=== PATIENT | female | born 1985 | race Two or more races ===

== ENCOUNTER 2017-07-13 10:12 | Emergency (ER) | payer OTHER ==
[2017-07-13 10:35] LABS: BILIRUBIN,URINE NEGATIVE (NEG); CLARITY,URINE CLEAR; COLOR,URINE YELLOW; GLUCOSE,URINE NEGATIVE (NEG); NITRITE,URINE POSITIVE (NEG); PROTEIN,URINE NEGATIVE (NEG-TRACE)
[2017-07-13 10:48] LABS: BACTERIA,URINE MOD /HPF (0-FEW); RBC,URINE OCC /HPF (0-2); SQUAMOUS EPITHELIAL CELL,UR MOD /LPF; WBC,URINE >40 /HPF (0-4)
[2017-07-13 10:49] LABS: ADD MAN DIFF? NO
[2017-07-13 10:52] LABS: BASO % 1 % (0-3); EOS # 0.1 x10^3/uL (0.0-0.7); EOS % 2 % (0-3); HEMATOCRIT 36.3 % (36.0-47.0); HEMOGLOBIN 12.3 g/dL (12.0-15.5); LYMPH # 1.3 x10^3/uL (1.0-4.8); LYMPH % 20 % (24-48); MEAN CORPUSCULAR HEMOGLOBIN 29 pg (25-35); MEAN CORPUSCULAR HGB CONC 34 g/dL (31-37); MEAN CORPUSCULAR VOLUME 86 fL (79-100); MONO # 0.5 x10^3/uL (0.0-1.1); MONO % 7 % (0-9); NEUT # 4.6 x10^3uL (1.8-7.7); NEUT % 70 % (31-73); PLATELET COUNT 214 x10^3/uL (140-400); RED BLOOD COUNT 4.23 x10^6/uL (3.50-5.40); RED CELL DISTRIBUTION WIDTH 13.2 % (11.5-14.5); WHITE BLOOD COUNT 6.5 x10^3/uL (4.0-11.0)
[2017-07-13 11:02] LABS: ANION GAP 9 (6-14); BLOOD UREA NITROGEN 6 mg/dL (7-20); BUN/CREATININE RATIO 10 (6-20); CALCIUM 8.9 mg/dL (8.5-10.1); CARBON DIOXIDE 26 mmol/L (21-32); CHLORIDE 102 mmol/L (98-107); CREATININE 0.6 mg/dL (0.6-1.0); GFR 115.9; GLUCOSE 79 mg/dL (70-99); POTASSIUM 3.5 mmol/L (3.5-5.1); SODIUM 137 mmol/L (136-145)
[2017-07-13 11:11] LABS: ALBUMIN 3.2 g/dL (3.4-5.0); ALBUMIN/GLOBULIN RATIO 0.7 (1.0-1.7); ALK PHOS 49 U/L (46-116); ALT (SGPT) 37 U/L (14-59); AST (SGOT) 20 U/L (15-37); TOTAL BILIRUBIN 0.5 mg/dL (0.2-1.0); TOTAL PROTEIN 7.5 g/dL (6.4-8.2)
== END 2017-07-13 11:51 | disposition home or self-care (01) ==
LOC: ER 10:12
DX: O44.02 Complete placenta previa NOS or without hemorrhage, second trimester (principal); O23.42 Unspecified infection of urinary tract in pregnancy, second trimester; Z3A.15 15 weeks gestation of pregnancy
CPT/HCPCS: 36415; 76801; 80053; 81001; 84702; 85025; 86900; 86901; 99285-25

== ENCOUNTER 2021-07-31 10:17 | Emergency (ER) | payer BC, OTHER ==
[~2021-07-31] VITALS: Ht 165.1 cm; Wt 102.2 kg
[~2021-07-31 10:17] MED LIST: NITR100C62 PO
[2021-07-31] MEDS ORDERED: IV NORMAL SALINE 1000ML BAG 1,000 ML IV SCH (10:45)
[2021-07-31] MEDS ORDERED: FAMOTIDINE 20 MG/2 ML VIAL IVP ONE (10:45)
[2021-07-31] MEDS ORDERED: ASPIRIN 325 MG TABLET PO ONE (10:45)
[2021-07-31 10:49] LABS: BASO % 1 % (0-3); EOS # 0.2 x10^3/uL (0.0-0.7); EOS % 4 % (0-3); HEMATOCRIT 39.2 % (36.0-47.0); HEMOGLOBIN 12.8 g/dL (12.0-15.5); LYMPH # 1.4 x10^3/uL (1.0-4.8); LYMPH % 31 % (24-48); MEAN CORPUSCULAR HEMOGLOBIN 27 pg (25-35); MEAN CORPUSCULAR HGB CONC 33 g/dL (31-37); MEAN CORPUSCULAR VOLUME 84 fL (79-100); MONO # 0.4 x10^3/uL (0.0-1.1); MONO % 8 % (0-9); NEUT # 2.7 x10^3/uL (1.8-7.7); NEUT % 57 % (31-73); PLATELET COUNT 265 x10^3/uL (140-400); RED BLOOD COUNT 4.69 x10^6/uL (3.50-5.40); RED CELL DISTRIBUTION WIDTH 13.7 % (11.5-14.5); WHITE BLOOD COUNT 4.7 x10^3/uL (4.0-11.0)
[2021-07-31 11:05] LABS: CALCIUM 9.3 mg/dL (8.5-10.1); CREATININE 0.6 mg/dL (0.6-1.0); GFR 113.1
--- NOTE | 2021-07-31 11:08 | PHYS DOC ---
Past Medical History Past Medical History: No Pertinent History Past Surgical History: , Other Additional Past Surgical Histo: X2 Smoking Status: Never Smoker Alcohol Use: None Drug Use: None General Adult EDM: Chief Complaint: CHEST PAIN HPI: HPI: Patient is a 36 year old female who presents with last night started having mid chest pressure that does hurt continuously but more so with movement. Mother has heart problems but she does not know what they are. She takes no medications daily. Do not take any aspirin. Rates her pain a pressure nonradiating 7 out of 10 that is mid chest. Denies abdominal pain, nausea, vomiting, diarrhea, fever, cough, recent illness, syncope, dizziness, headache denies shortness of breath denies pain with breathing. Review of Systems: Review of Systems: Constitutional: Denies fever or chills. [] Eyes: Denies change in visual acuity. [] HENT: Denies nasal congestion or sore throat. [] Respiratory: Denies cough or shortness of breath. [] Cardiovascular: + chest pain or denies edema. [] GI: Denies abdominal pain, nausea, vomiting, bloody stools or diarrhea. [] : Denies dysuria. [] Musculoskeletal: Denies back pain or joint pain. [] Integument: Denies rash. [] Neurologic: Denies headache, focal weakness or sensory changes. [] Endocrine: Denies polyuria or polydipsia. [] Lymphatic: Denies swollen glands. [] Psychiatric: Denies depression or anxiety. [] Heart Score: C/O Chest Pain: Yes HEART Score for Chest Pain: HEART Score for Chest Pain Response (Comments) Value History Slighlty/Non-Suspicious 0 ECG Normal 0 Age < 45 0 Risk Factors 1 or 2 Risk Factors 1 Troponin < Normal Limit 0 Total 1 Risk Factors: Risk Factors: DM, Current or recent (<one month) smoker, HTN, HLP, family history of CAD, obesity. Risk Scores: Score 0 - 3: 2.5% MACE over next 6 weeks - Discharge Home Score 4 - 6: 20.3% MACE over next 6 weeks - Admit for Clinical Observation Score 7 - 10: 72.7% MACE over next 6 weeks - Early Invasive Strategies Current Medications: Current Medications Medications (Trade) Dose Ordered Sig/Carlos Alberto Start Time Stop Time Status Last Admin Dose Admin Aspirin (Carolyn Aspirin) 325 mg 1X ONCE 07/31/21 10:45 07/31/21 10:49 DC Famotidine (Pepcid Vial) 20 mg 1X ONCE 07/31/21 10:45 07/31/21 10:49 DC Sodium Chloride 1,000 ml @ 1,000 mls/hr Q1H 07/31/21 10:45 07/31/21 11:44 Allergies: Allergies: Allergies Coded Allergies Type Severity Reaction Last Updated Verified No Known Drug Allergies 07/13/17 No Physical Exam: PE: Constitutional: Well developed, well nourished, no acute distress, non-toxic appearance. [] HENT: Normocephalic, atraumatic, bilateral external ears normal, oropharynx moist, no oral exudates, nose normal. [] Eyes: PERRLA, EOMI, conjunctiva normal, no discharge. [] Neck: Normal range of motion, no tenderness, supple, no stridor. [] Cardiovascular:Heart rate regular rhythm, no murmur. Reproducible mid chest pain with pressure [] Lungs & Thorax: Bilateral breath sounds clear to auscultation [] Abdomen: Bowel sounds normal, soft, no tenderness, no masses, no pulsatile masses. [] Skin: Warm, dry, no erythema, no rash. [] Back: No tenderness, no CVA tenderness. [] Extremities: No tenderness, no cyanosis, no clubbing, ROM intact, no edema. [] Neurologic: Alert and oriented X 3, normal motor function, normal sensory function, no focal deficits noted. [] Psychologic: Affect normal, judgement normal, mood normal. [] Current Patient Data: Labs: Laboratory Tests Test 07/31/21 10:44 White Blood Count 4.7 x10^3/uL (4.0-11.0) Red Blood Count 4.69 x10^6/uL (3.50-5.40) Hemoglobin 12.8 g/dL (12.0-15.5) Hematocrit 39.2 % (36.0-47.0) Mean Corpuscular Volume 84 fL (79-100) Mean Corpuscular Hemoglobin 27 pg (25-35) Mean Corpuscular Hemoglobin Concent 33 g/dL (31-37) Red Cell Distribution Width 13.7 % (11.5-14.5) Platelet Count 265 x10^3/uL (140-400) Neutrophils (%) (Auto) 57 % (31-73) Lymphocytes (%) (Auto) 31 % (24-48) Monocytes (%) (Auto) 8 % (0-9) Eosinophils (%) (Auto) 4 % (0-3) H Basophils (%) (Auto) 1 % (0-3) Neutrophils # (Auto) 2.7 x10^3/uL (1.8-7.7) Lymphocytes # (Auto) 1.4 x10^3/uL (1.0-4.8) Monocytes # (Auto) 0.4 x10^3/uL (0.0-1.1) Eosinophils # (Auto) 0.2 x10^3/uL (0.0-0.7) Basophils # (Auto) 0.0 x10^3/uL (0.0-0.2) Laboratory Tests 07/31/21 10:44 Vital Signs: Vital Signs Date Time Temp Pulse Resp B/P (MAP) Pulse Ox O2 Delivery O2 Flow Rate FiO2 07/31/21 10:21 98.6 88 17 159/100 (119) 100 Room Air 98.6 EKG: EK and read by Dr. Joseph as a sinus rhythm and no STEMI. Radiology/Procedures: Radiology/Procedures: [] Impression: [facility] [address] [place], [place] [id number] IMAGING REPORT Signed PATIENT: LAILA ROWLAND ACCOUNT: [id number] : 1985 LOCATION: ER AGE: 36 SEX: F EXAM STATUS: PRE ER ORD. PHYSICIAN: TANYA RAMON APRN REASON: chest pain, some trouble breathing PROCEDURE: PORTABLE CHEST 1V Single AP view of the chest. Comparison: None. Indication: Chest pain and difficulty breathing Findings: The heart is at the upper limits of normal. There is no pneumothorax or effusion. No air space or interstitial disease. Impression: 1. No acute cardiopulmonary process. Electronically signed by: Guero Mak MD (07/31/2021 11:06 AM) [id number] DICTATED and SIGNED BY: GUERO MAK MD DATE: 07/31/21 1106 Course & Med Decision Making: Course & Med Decision Making Pertinent Labs and Imaging studies reviewed. (See chart for details) See HPI. Alert and oriented x4. Scarbro warm and dry. No extremity edema. Obesity. Speaks in full clear sentences. Skin pink warm and dry. Abdomen soft and nontender. Chest pain is reproducible with palpation to the mid chest. She denies it radiating. Vital signs are within normal limits. No calf tenderness or extremity edema. No recent surgery or travel. PERC 0. Wells 0. Blood work unremarkable. Chest x-ray shows no acute findings. Patient states she feels the same but no worse. She denies any shortness of breath. Seeing as how this is reproducible pain with palpation and with movement this is most likely musculoskeletal. Her troponin is negative. Her EKG is normal sinus rhythm. [] Dragon Disclaimer: Dragon Disclaimer: This electronic medical record was generated, in whole or in part, using a voice recognition dictation system. Departure Departure Impression: Primary Impression: Musculoskeletal chest pain Disposition: HOME / SELF CARE / HOMELESS Condition: STABLE Referrals: DERICK BLACKMAN MD (PCP) KEVIN HUITRON MD Patient Instructions: Chest Pain (Nonspecific) Additional Instructions: Follow-up with a primary care provider soon as possible. If any of your symptoms worsen or become severe return to the emergency room. Take medication as prescribed and with food. Remember some of these medications can make you sleepy do not drive or work on the medication. Scripts Cyclobenzaprine Hcl (CYCLOBENZAPRINE HCL) 5 Mg Tablet 1 TAB PO TID PRN for MUSCLE PAIN, #15 TAB Prov: TANYA RAMON APRN 07/31/21 Methylprednisolone (MEDROL) 4 Mg Tab.ds.pk 1 PKG PO UD, #1 PKG Prov: TANYA RAMON TEST DESKMAN 07/31/21 TANYA RAMON APRN Jul 31, 2021 11:08
[2021-07-31 11:10] LABS: ALBUMIN 4.1 g/dL (3.4-5.0); ALBUMIN/GLOBULIN RATIO 1.2 (1.0-1.7); TOTAL BILIRUBIN 0.7 mg/dL (0.2-1.0); TOTAL PROTEIN 7.6 g/dL (6.4-8.2)
[2021-07-31 12:00] LABS: BACTERIA,URINE FEW /HPF (0-FEW); RBC,URINE 0 /HPF (0-2)
[2021-07-31 12:06] LABS: BARBITURATES NEG (NEG); BENZODIAZEPINES NEG (NEG); CANNABINOIDS NEG (NEG); COCAINE NEG (NEG); METHADONE NEG (NEG); OPIATES NEG (NEG); PHENCYCLIDINE NEG (NEG)
[2021-07-31 12:09] LABS: AMPHETAMINE/METHAMPHETAMINE NEG (NEG)
[2021-07-31 12:49] VITALS: BP 144/90
[2021-07-31] MEDS ORDERED: CYCL5TAB PO (12:55)
[2021-07-31] MEDS ORDERED: METH4TAB2 PO (12:55)
--- NOTE | 2021-07-31 13:29 | EKG ---
[facility] [address] [place] [address] Test Date: 1999-05-02 Test Time: 08:01:04 Pat Name: LAILA ROWLAND Department: Room: Gender: F [employer]: : 1985 Requested By: TANYA RAMON Order Number: [id number] Reading MD: Fahad Quesada Measurements Intervals [place] Rate: 80 P: 19 ND: 168 QRS: 28 QRSD: 78 T: 13 QT: 378 QTc: 440 Interpretive Statements SINUS RHYTHM RI6.02 No previous ECG available for comparison Electronically Signed On 07-31-2021 16:25:23 CDT by Fahad Quesada
== END 2021-07-31 13:24 | disposition home or self-care (01) ==
LOC: ER 10:17
DX: R07.89 Other chest pain (principal)
CPT/HCPCS: 36415; 71045; 80053; 80307; 81001; 81025; 83690; 83735; 83880; 84484; 85025; 93005; 96361; 96374; 99285; J3490; J7030

== ENCOUNTER 2021-09-09 21:28 | Inpatient (IN) | payer BC ==
[~2021-09-09] VITALS: Ht 165.1 cm; Wt 103.3 kg
[~2021-09-09 21:28] MED LIST changes: +CYCL5TAB PO; +METH4TAB2 PO
--- NOTE | 2021-09-09 21:56 | PHYS DOC ---
Past Medical History Past Medical History: No Pertinent History Past Surgical History: , Other Additional Past Surgical Histo: X2 Smoking Status: Never Smoker Alcohol Use: None Drug Use: None Adult General Chief Complaint Chief Complaint: CHEST PAIN HPI HPI Patient is a 36 year old female presenting to the emergency department for evaluation of chest pain headache and vertigo. Patient says that her chest pain started approximately 2 PM this afternoon while she was at rest. She says it is a pressure sensation in the center of her chest is associate with nausea and shortness of breath. She has no vomiting or diaphoresis with her symptoms and the symptoms have been constant since then. She says that the headache and room spinning sensation started at approximately 3 PM. She says the room spinning sensation is more prominent when she moves her head or tries to walk and does not have room spinning when she is sitting still. She says the headache is di ffuse and pounding. She says that she has no medical problems and takes no medications on a regular basis. She denies smoking cigarettes or having a family history of heart disease. She denies any prior cardiac testing such as EKG stress test or heart catheterization. She is in no acute distress with normal vital signs. Review of Systems Review of Systems Constitutional: Denies fever or chills [] Eyes: Denies change in visual acuity, redness, or eye pain [] HENT: Denies nasal congestion or sore throat [] Respiratory: Denies cough or shortness of breath [] Cardiovascular: +CP GI: Denies abdominal pain. No nausea, vomiting, bloody stools or diarrhea [] : Denies dysuria or hematuria [] Musculoskeletal: Denies back pain or joint pain [] Integument: Denies rash or skin lesions [] Neurologic: + headache. No focal weakness or sensory changes [] All other systems were reviewed and found to be within normal limits, except as documented in this note. Current Medications Current Medications Current Medications Medications (Trade) Dose Ordered Sig/[facility] Start Time Stop Time Status Last Admin Dose Admin Aspirin (Aspirin Chewable) 324 mg 1X ONCE 09/09/21 22:00 09/09/21 22:01 DC 09/09/21 22:41 324 MG Diazepam (Valium) 5 mg 1X ONCE 09/09/21 22:00 09/09/21 22:01 DC 09/09/21 22:42 5 MG Meclizine HCl (Antivert) 25 mg 1X ONCE 09/09/21 22:00 09/09/21 22:01 DC 09/09/21 22:40 25 MG Morphine Sulfate (Morphine Sulfate) 4 mg 1X PRN 09/09/21 22:00 09/09/21 22:41 4 MG Ondansetron HCl (Zofran) 4 mg 1X ONCE 09/09/21 22:00 09/09/21 22:01 DC 09/09/21 22:41 4 MG Sodium Chloride 1,000 ml @ 1,000 mls/hr 1X ONCE 09/09/21 22:00 09/09/21 22:59 DC 09/09/21 22:40 1,000 MLS/HR Allergies Allergies Allergies Coded Allergies Type Severity Reaction Last Updated Verified No Known Drug Allergies 07/13/17 No Physical Exam Physical Exam Constitutional: Well developed, well nourished, no acute distress, non-toxic appearance. [] HENT: Normocephalic, atraumatic, bilateral external ears normal, oropharynx moist, no oral exudates, nose normal. [] Eyes: PERRLA, EOMI, conjunctiva normal, no discharge. [] Neck: Normal range of motion, no tenderness, supple, no stridor. [] Cardiovascular:Heart rate with irregular rhythm, no murmur [] Lungs & Thorax: Bilateral breath sounds clear to auscultation [] Abdomen: Bowel sounds normal, soft, no tenderness, no masses, no pulsatile masses. [] Skin: Warm, dry, no erythema, no rash. [] Back: No tenderness, no CVA tenderness. [] Extremities: No tenderness, no cyanosis, no clubbing, ROM intact, no edema. [] Neurologic: Alert and oriented X 3, normal motor function, normal sensory function, no focal deficits noted. [] Current Patient Data Vital Signs Vital Signs Date Time Temp Pulse Resp B/P (MAP) Pulse Ox O2 Delivery O2 Flow Rate FiO2 09/09/21 21:35 98.6 98 16 144/83 (103) 100 Room Air 98.6 Lab Values Laboratory Tests Test 09/09/21 21:55 09/09/21 22:00 09/09/21 22:10 Urine Collection Type Unknown Urine Color (Auto) Colorless Urine Turbidity Clear Urine pH (Auto) 6.0 (<5.0-8.0) Urine Specific Luck 1.006 (1.000-1.030) Urine Protein (Auto) Negative mg/dL (Negative) Urine Glucose (Auto)(UA) Negative mg/dL (Negative) Urine Ketones (Auto) Negative mg/dL (Negative) Urine Blood (Auto) Negative (Negative) Urine Nitrite Negative (Negative) Urine Bilirubin (Auto) Negative (Negative) Urine Urobilinogen (Auto) Normal mg/dL (Normal) Urine Leukocyte Esterase (Auto) Negative (Negative) Urine RBC 0 /HPF (0-2) Urine WBC 0 /HPF (0-4) Urine Squamous Epithelial Cells Few /LPF Urine Bacteria 0 /HPF (0-FEW) Urine Opiates Screen Neg (NEG) Urine Methadone Screen Neg (NEG) Urine Barbiturates Neg (NEG) Urine Phencyclidine Screen Neg (NEG) Urine Amphetamine/Methamphetamine Neg (NEG) Urine Benzodiazepines Screen Neg (NEG) Urine Cocaine Screen Neg (NEG) Urine Cannabinoids Screen Neg (NEG) Urine Ethyl Alcohol Neg (NEG) POC Urine HCG, Qualitative Hcg negative (Negative) White Blood Count 8.4 x10^3/uL (4.0-11.0) Red Blood Count 4.64 x10^6/uL (3.50-5.40) Hemoglobin 12.9 g/dL (12.0-15.5) Hematocrit 38.2 % (36.0-47.0) Mean Corpuscular Volume 82 fL (79-100) Mean Corpuscular Hemoglobin 28 pg (25-35) Mean Corpuscular Hemoglobin Concent 34 g/dL (31-37) Red Cell Distribution Width 13.7 % (11.5-14.5) Platelet Count 284 x10^3/uL (140-400) Neutrophils (%) (Auto) 67 % (31-73) Lymphocytes (%) (Auto) 21 % (24-48) L Monocytes (%) (Auto) 8 % (0-9) Eosinophils (%) (Auto) 3 % (0-3) Basophils (%) (Auto) 1 % (0-3) Neutrophils # (Auto) 5.6 x10^3/uL (1.8-7.7) Lymphocytes # (Auto) 1.8 x10^3/uL (1.0-4.8) Monocytes # (Auto) 0.7 x10^3/uL (0.0-1.1) Eosinophils # (Auto) 0.2 x10^3/uL (0.0-0.7) Basophils # (Auto) 0.0 x10^3/uL (0.0-0.2) D-Dimer (Aaliyah) < 0.27 ug/mlFEU Sodium Level 141 mmol/L (136-145) Potassium Level 3.8 mmol/L (3.5-5.1) Chloride Level 103 mmol/L (98-107) Carbon Dioxide Level 29 mmol/L (21-32) Anion Gap 9 (6-14) Blood Urea Nitrogen 7 mg/dL (7-20) Creatinine 0.8 mg/dL (0.6-1.0) Estimated GFR (Cockcroft-Gault) 81.2 BUN/Creatinine Ratio 9 (6-20) Glucose Level 121 mg/dL (70-99) H Calcium Level 8.9 mg/dL (8.5-10.1) Total Bilirubin 0.7 mg/dL (0.2-1.0) Aspartate Amino Transferase (AST) 15 U/L (15-37) Alanine Aminotransferase (ALT) 26 U/L (14-59) Alkaline Phosphatase 58 U/L (46-116) Troponin I High Sensitivity 13 ng/L (4-50) DS-Cko-R-Type Natriuretic Peptide 47 pg/mL (0-124) Total Protein 7.5 g/dL (6.4-8.2) Albumin 3.7 g/dL (3.4-5.0) Albumin/Globulin Ratio 1.0 (1.0-1.7) Lipase 70 U/L (73-393) L Thyroid Stimulating Hormone (TSH) 1.199 uIU/mL (0.358-3.74) Serum Test, Qualitative Negative (NEG) Laboratory Tests 09/09/21 22:10 Laboratory Tests 09/09/21 22:10 EKG EKG Sinus rhythm at 77 bpm with sinus arrhythmia present with no ST elevation or depression but there is scooped ST segments in leads II, III, aVF, V3 through V6 in addition to T wave inversion. Radiology/Procedures Radiology/Procedures [] Course & Med Decision Making Course & Med Decision Making I will check labs and imaging treat symptoms and reassess. Patient has improved pain and vertigo in the emergency department but still has some discomfort. Patient does have an abnormal EKG and given her intractable symptoms we will plan for admission for further observation and treatment and cardiology consultation. Patient admitted in stable condition. Dragon Disclaimer Dragon Disclaimer This electronic medical record was generated, in whole or in part, using a voice recognition dictation system. Departure Departure Impression: Primary Impression: Chest pain at rest Additional Impression: Abnormal EKG Disposition: ADMITTED INPATIENT Admitting Physician: EUGENE Whitaker) Condition: STABLE Referrals: NO PCP (PCP) Problem Qualifiers KEIRY HILL DO September 09, 2021 21:56
[2021-09-09] MEDS ORDERED: ASPIRIN CHEWABLE 81 MG TABLET. PO ONE (22:00)
[2021-09-09] MEDS ORDERED: MECLIZINE HCL 12.5 MG TABLET. PO ONE (22:00)
[2021-09-09] MEDS ORDERED: ONDANSETRON PF 4 MG/2 ML VIAL. IVP ONE (22:00)
[2021-09-09] MEDS ORDERED: IV NORMAL SALINE 1000ML BAG 1,000 ML IV ONE (22:00)
[2021-09-09] MEDS ORDERED: diazePAM 5 MG TABLET PO ONE (22:00)
[2021-09-09 22:19] LABS: AMPHETAMINE/METHAMPHETAMINE NEG (NEG); BARBITURATES NEG (NEG)
[2021-09-09 22:20] LABS: BENZODIAZEPINES NEG (NEG); CANNABINOIDS NEG (NEG); COCAINE NEG (NEG); METHADONE NEG (NEG); OPIATES NEG (NEG); PHENCYCLIDINE NEG (NEG)
[2021-09-09 22:28] LABS: BASO % 1 % (0-3); EOS # 0.2 x10^3/uL (0.0-0.7); EOS % 3 % (0-3); HEMATOCRIT 38.2 % (36.0-47.0); HEMOGLOBIN 12.9 g/dL (12.0-15.5); LYMPH # 1.8 x10^3/uL (1.0-4.8); LYMPH % 21 % (24-48); MEAN CORPUSCULAR HEMOGLOBIN 28 pg (25-35); MEAN CORPUSCULAR HGB CONC 34 g/dL (31-37); MEAN CORPUSCULAR VOLUME 82 fL (79-100); MONO # 0.7 x10^3/uL (0.0-1.1); MONO % 8 % (0-9); NEUT # 5.6 x10^3/uL (1.8-7.7); NEUT % 67 % (31-73); PLATELET COUNT 284 x10^3/uL (140-400); RED BLOOD COUNT 4.64 x10^6/uL (3.50-5.40); RED CELL DISTRIBUTION WIDTH 13.7 % (11.5-14.5); WHITE BLOOD COUNT 8.4 x10^3/uL (4.0-11.0)
[2021-09-09 22:31] LABS: CALCIUM 8.9 mg/dL (8.5-10.1); CREATININE 0.8 mg/dL (0.6-1.0); GFR 81.2; POTASSIUM 3.8 mmol/L (3.5-5.1)
[2021-09-09 22:32] LABS: PREG TEST PT QUAL NEGATIVE (NEG)
[2021-09-09 22:37] LABS: ALBUMIN 3.7 g/dL (3.4-5.0); TOTAL BILIRUBIN 0.7 mg/dL (0.2-1.0); TOTAL PROTEIN 7.5 g/dL (6.4-8.2)
[2021-09-09 22:38] LABS: BACTERIA,URINE 0 /HPF (0-FEW); RBC,URINE 0 /HPF (0-2); WBC,URINE 0 /HPF (0-4)
[2021-09-09] MEDS: MORPHINE SULFATE 4 MG/ML INJ. IV PRN (22:41)
--- NOTE | 2021-09-09 22:51 | RAD ---
EXAM: CT Head without IV contrast CLINICAL HISTORY: Reason: headache, vertigo / Spl. Instructions: / History: COMPARISON: None. TECHNIQUE: Routine CT of the head without contrast. PQRS compliance statement - One or more of the following individualized dose reduction techniques wer e utilized for this study: 1. Automated exposure control 2. Adjustment of the mA and/or kV according to patient size 3. Use of iterative reconstruction technique FINDINGS: There is no evidence of hemorrhage, mass or extra-axial fluid collection. Horan-white differentiation is maintained with no evidence of edema. There is no mass effect or shift of the intracranial structures. The ventricles, basilar cisterns and cortical sulci are normal in size and configuration for the dasha ents stated age. The cerebellum and brainstem are unremarkable. The calvarium demonstrates no evidence of fracture or focal lesion. There is normal aeration of the visualized paranasal sinuses and mastoid air cells. The visualized portions of the orbits are normal. IMPRESSION: No evidence for acute intracranial process. Electronically signed by: Faizan Treadwell MD (09/09/2021 10:48 PM) MACEY
--- NOTE | 2021-09-09 23:14 | RAD ---
EXAM: AP View of the chest DATE: 09/09/2021 10:01 PM INDICATION: Chest pain COMPARISON: 07/31/2021 FINDINGS: The heart is not enlarged. Mediastinal and hilar contours are normal. Mild patchy opacity left lung base likely atelectasis or developing consolidation. No pleural effusion or pneumothorax. IMPRESSION: Mild patchy opacity left lung base likely atelectasis or developing consolidation, although favor ate lectasis. Electronically signed by: Faizan Treadwell MD (09/09/2021 11:12 PM) MACEY
[2021-09-09] MEDS ORDERED: MORPHINE SULFATE 4 MG/ML INJ. IVP PRN (23:45)
[2021-09-09] MEDS ORDERED: ONDANSETRON PF 4 MG/2 ML VIAL. IVP PRN (23:45)
[2021-09-10] VITALS (7 sets, daily range): BP systolic 115–130; BP diastolic 57–84
--- NOTE | 2021-09-10 01:20 | NUR ---
Pt arrived to unit per cart, pt ambulated to restroom with standby assist, tele monitor applied to pt vs obtained and stable pt c/o chest pressure/pain at time of assessment will medicate pt. Pt oriented to surroundings and call light pt advised to call for assistance prior to getting oob secondary to dizziness. Assessment completed will resume care and contiue to monitor pt.
--- NOTE | 2021-09-10 01:32 | EKG ---
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
[2021-09-10] MEDS: MORPHINE SULFATE 4 MG/ML INJ. IV PRN (02:14)
--- NOTE | 2021-09-10 05:27 | NUR ---
Pt called out with c/o headache and dizziness call placed to for Tylenol order. Will monitor pt.
[2021-09-10] MEDS: ACETAMINOPHEN 325 MG TABLET. PO PRN ×2 (06:11→12:10)
[2021-09-10] MEDS: IV NORMAL SALINE 1000ML BAG 1,000 ML IV SCH ×2 (06:12→16:20)
[2021-09-10 06:23] LABS: BASO % 0 % (0-3); EOS # 0.2 x10^3/uL (0.0-0.7); EOS % 3 % (0-3); HEMATOCRIT 37.5 % (36.0-47.0); HEMOGLOBIN 12.4 g/dL (12.0-15.5); LYMPH # 1.9 x10^3/uL (1.0-4.8); LYMPH % 30 % (24-48); MEAN CORPUSCULAR HEMOGLOBIN 28 pg (25-35); MEAN CORPUSCULAR HGB CONC 33 g/dL (31-37); MEAN CORPUSCULAR VOLUME 84 fL (79-100); MONO # 0.7 x10^3/uL (0.0-1.1); MONO % 11 % (0-9); NEUT # 3.5 x10^3/uL (1.8-7.7); NEUT % 56 % (31-73); PLATELET COUNT 269 x10^3/uL (140-400); RED BLOOD COUNT 4.47 x10^6/uL (3.50-5.40); WHITE BLOOD COUNT 6.3 x10^3/uL (4.0-11.0)
[2021-09-10 06:32] LABS: CALCIUM 8.5 mg/dL (8.5-10.1); CREATININE 0.6 mg/dL (0.6-1.0); GFR 113.1; POTASSIUM 4.1 mmol/L (3.5-5.1)
--- NOTE | 2021-09-10 07:30 | PDOC1 ---
History and Physical Date of Admission Date of Admission DATE: 09/10/21 TIME: 07:20 Identification/Chief Complaint Chief Complaint Dizziness Source Source: Patient History of Present Illness History of Present Illness Ms Antoine is a 36 year old female presenting to the emergency department c/o chest pain. Started between 1400 and 1600 on 09/09/2021 she has associated headache dizziness shortness of breath with exertion and body aches. Pain described as pressure sensation in the center of her chest is associate with nausea and shortness of breath. She has no vomiting or diaphoresis with her symptoms and the symptoms have been constant since then. She says that the headache and room spinning sensation started at approximately 1500 PM. She says the room spinning sensation is more prominent when she moves her head or tries to walk and does not have room spinning when she is sitting still. She says the headache is diffuse and pounding. She feels weak when she stands up She lives at home with her and 15-year-old and 3-year-old child who are both, school no recent sick contacts that she knows of she is vaccinated against COVID-19. No prior history of cardiac events or blood clot disorders in Labs with WBC 8.4, Hb 12.9, platelets 284, D-dimer negative, NA 141, K3.8, BUN 17, CR 0.8, glucose 121, calcium 8.9, bilirubin 0.7, AST 15, ALT 26, alkaline phosphatase 58, albumin 3.7, lipase 77 negative, TSH 1.1, NT proBNP 47, initial high-sensitivity troponin is 13 and follow-up is 13 urine drug screen negative urinalysis bland CT head noncontrast with no acute intracranial abnormality. Chest radiograph with left basilar changes infiltrate versus atelectasis. EKG sinus rate of approximately 77 bpm with some dropped beats with uncoupled P waves on multiple beats T WI in 5 V6 which is new from prior. QTc 386 Past Medical History Cardiovascular: No pertinent hx Past Surgical History Past Surgical History: Family History Family History: Diabetes Social History Smoke: No ALCOHOL: none Drugs: None Current Problem List Problem List Problems Medical Problems: (1) Abnormal EKG Status: Acute (2) Chest pain at rest Status: Acute Current Medications Current Medications Current Medications Aspirin (Aspirin Chewable) 324 mg 1X ONCE PO Last administered on 09/09/21at 22:41; Start 09/09/21 at 22:00; Stop 09/09/21 at 22:01; Status DC Ondansetron HCl (Zofran) 4 mg 1X ONCE IVP Last administered on 09/09/21at 22:41; Start 09/09/21 at 22:00; Stop 09/09/21 at 22:01; Status DC Sodium Chloride 1,000 ml @ 1,000 mls/hr 1X ONCE IV Last administered on 09/09/21at 22:40; Start 09/09/21 at 22:00; Stop 09/09/21 at 22:59; Status DC Morphine Sulfate (Morphine Sulfate) 4 mg 1X PRN IV PAIN Last administered on 09/10/21at 02:14; Start 09/09/21 at 22:00 Meclizine HCl (Antivert) 25 mg 1X ONCE PO Last administered on 09/09/21at 22:40; Start 09/09/21 at 22:00; Stop 09/09/21 at 22:01; Status DC Diazepam (Valium) 5 mg 1X ONCE PO Last administered on 09/09/21at 22:42; Start 09/09/21 at 22:00; Stop 09/09/21 at 22:01; Status DC Ondansetron HCl (Zofran) 4 mg PRN Q8HRS PRN IVP NAUSEA/VOMITING; Start 09/09/21 at 23:45; Stop 09/10/21 at 23:44 Morphine Sulfate (Morphine Sulfate) 4 mg PRN Q2HR PRN IVP PAIN; Start 09/09/21 at 23:45; Stop 09/10/21 at 23:44 Acetaminophen (Tylenol) 650 mg PRN Q6HRS PRN PO MILD PAIN / TEMP > 100.3'F Last administered on 09/10/21at 06:11; Start 09/10/21 at 06:00 Sodium Chloride 1,000 ml @ 100 mls/hr Q10H IV Last administered on 09/10/21at 06:12; Start 09/10/21 at 06:00 Active Scripts Active Reported No Known Medications Prior To Admisstion (Info) Each 1 Each MC Allergies Allergies: Coded Allergies: No Known Drug Allergies (Unverified , 07/13/17) ROS General: YES: Fatigue, Malaise; No: Chills, Night Sweats, Appetite, Other PSYCHOLOGICAL ROS: No: Anxiety, Behavioral Disorder, Concentration difficultie, Decreased libido, Depression, Disorientation, Hallucinations, Hostility, Irritablity, Memory difficulties, Mood Swings, Obsessive thoughts, Physical abu se, Sexual abuse, Sleep disturbances, Suicidal ideation, Other Eyes: No Blurry vision, No Decreased vision, No Double vision, No Dry eyes, No Excessive tearing, No Eye Pain, No Itchy Eyes, No Loss of vision, No Photophobia, No Scotomata, No Uses contacts, No Uses glasses, No Other HEENT: No: Heacaches, Visual Changes, Hearing change, Nasal congestion, Nasal discharge, Oral lesions, Sinus pain, Sore Throat, Epistaxis, Sneezing, Snoring, Tinnitus, Vertigo, Vocal changes, Other ALLERGY AND IMMUNOLOGY: No: Hives, Insect Bite Sensitivity, Itchy/Watery Eyes, Nasal Congestion, Post Nasal Drip, Seasonal Allergies, Other Hematological and Lymphatic: No: Bleeding Problems, Blood Clots, Blood Transfusions, Brusing, Night Sweats, Pallor, Swollen Lymph Nodes, Other ENDOCRINE: No: Breast Changes, Galactorrhea, Hair Pattern Changes, Hot Flashes, Malaise/lethargy, Mood Swings, Palpitations, Polydipsia/polyuria, Skin Changes, Temperature Intolerance, Unexpected Weight Changes, Other Breast: No New/Changing Breast Lumps, No Nipple changes, No Nipple discharge, No Other Respiratory: No: Cough, Hemoptysis, Orthopnea, Pleuritic Pain, Shortness of breath, SOB with excertion, Sputum Changes, Stridor, Tachypnea, Wheezing, Other Cardiovascular: No Chest Pain, No Palpitations, No Orthopnea, No Paroxysmal Noc. Dyspnea, No Edema, No Lt Headedness, No Other Gastrointestinal: No Nausea, No Vomiting, No Abdominal Pain, No Diarrhea, No Constipation, No Melena, No Hematochezia, No Other Genitourinary: No Dysuria, No Frequency, No Incontinence, No Hematuria, No Retention, No Discharge, No Urgency, No Pain, No Flank Pain, No Other, No , No , No , No , No , No , No Musculoskeletal: Yes Joint Pain, Yes Muscle Pain, Yes Muscular Weakness; No Gait Disturbance, No Joint Stiffness, No Joint Swelling, No Pain In:, No Swelling In:, No Other Neurological: No Behavorial Changes, No Bowel/Bladder ControlChng, No Confusion, No Dizziness, No Gait Disturbance, No Headaches, No Impaired Co ord/balance, No Memory Loss, No Numbness/Tingling, No Seizures, No Speech Problems, No Tremors, No Visual Changes, No Weakness, No Other Skin: No Dry Skin, No Eczema, No Hair Changes, No Lumps, No Mole Changes, No Mottling, No Nail Changes, No Pruritus, No Rash, No Skin Lesion Changes, No Other, No Acne Physical Exam General: Alert, Oriented X3, Cooperative, mild distress HEENT: Atraumatic, PERRLA, EOMI, Mucous membr. moist/pink Lungs: Clear to auscultation, Normal air movement Heart: S1S2, RRR, no thrills, no rubs, no gallops, no murmurs Abdomen: Normal bowel sounds, Soft, No tenderness, No hepatosplenomegaly, No ma sses Rectal Exam: not examined Extremities: No clubbing, No cyanosis, No edema, Normal pulses, No tenderness/swelling Skin: No rashes, No breakdown, No significant lesion Neuro: Normal gait, Normal speech, Strength at 5/5 X4 ext, Normal tone, Sensation intact, Cranial nerves 3-12 NL, Reflexes 2+ Psych/Mental Status: Mental status NL, Mood NL Vitals Vitals Vital Signs Date Time Temp Pulse Resp B/P (MAP) Pulse Ox O2 Delivery O2 Flow Rate FiO2 09/10/21 06:33 98.2 42 16 117/60 (79) 97 Room Air 98.2 Labs Labs Laboratory Tests Test 09/09/21 21:55 09/09/21 22:00 09/09/21 22:10 09/10/21 00:12 Urine Collection Type Unknown Urine Color (Auto) Colorless Urine Turbidity Clear Urine pH (Auto) 6.0 (<5.0-8.0) Urine Specific [place] 1.006 (1.000-1.030) Urine Protein (Auto) Negative mg/dL (Negative) Urine Glucose (Auto)(UA) Negative mg/dL (Negative) Urine Ketones (Auto) Negative mg/dL (Negative) Urine Blood (Auto) Negative (Negative) Urine Nitrite Negative (Negative) Urine Bilirubin (Auto) Negative (Negative) Urine Urobilinogen (Auto) Normal mg/dL (Normal) Urine Leukocyte Esterase (Auto) Negative (Negative) Urine RBC 0 /HPF (0-2) Urine WBC 0 /HPF (0-4) Urine Squamous Epithelial Cells Few /LPF Urine Bacteria 0 /HPF (0-FEW) Urine Opiates Screen Neg (NEG) Urine Methadone Screen Neg (NEG) Urine Barbiturates Neg (NEG) Urine Phencyclidine Screen Neg (NEG) Urine Amphetamine/Methamphetamine Neg (NEG) Urine Benzodiazepines Screen Neg (NEG) Urine Cocaine Screen Neg (NEG) Urine Cannabinoids Screen Neg (NEG) Urine Ethyl Alcohol Neg (NEG) Bedside Urine HCG, Qualitative Hcg negative (Negative) White Blood Count 8.4 x10^3/uL (4.0-11.0) Red Blood Count 4.64 x10^6/uL (3.50-5.40) Hemoglobin 12.9 g/dL (12.0-15.5) Hematocrit 38.2 % (36.0-47.0) Mean Corpuscular Volume 82 fL (79-100) Mean Corpuscular Hemoglobin 28 pg (25-35) Mean Corpuscular Hemoglobin Concent 34 g/dL (31-37) Red Cell Distribution Width 13.7 % (11.5-14.5) Platelet Count 284 x10^3/uL (140-400) Neutrophils (%) (Auto) 67 % (31-73) Lymphocytes (%) (Auto) 21 % (24-48) Monocytes (%) (Auto) 8 % (0-9) Eosinophils (%) (Auto) 3 % (0-3) Basophils (%) (Auto) 1 % (0-3) Neutrophils # (Auto) 5.6 x10^3/uL (1.8-7.7) Lymphocytes # (Auto) 1.8 x10^3/uL (1.0-4.8) Monocytes # (Auto) 0.7 x10^3/uL (0.0-1.1) Eosinophils # (Auto) 0.2 x10^3/uL (0.0-0.7) Basophils # (Auto) 0.0 x10^3/uL (0.0-0.2) D-Dimer (Aaliyah) < 0.27 ug/mlFEU Sodium Level 141 mmol/L (136-145) Potassium Level 3.8 mmol/L (3.5-5.1) Chloride Level 103 mmol/L (98-107) Carbon Dioxide Level 29 mmol/L (21-32) Anion Gap 9 (6-14) Blood Urea Nitrogen 7 mg/dL (7-20) Creatinine 0.8 mg/dL (0.6-1.0) Estimated GFR (Cockcroft-Gault) 81.2 BUN/Creatinine Ratio 9 (6-20) Glucose Level 121 mg/dL (70-99) Calcium Level 8.9 mg/dL (8.5-10.1) Total Bilirubin 0.7 mg/dL (0.2-1.0) Aspartate Amino Transf (AST/SGOT) 15 U/L (15-37) Alanine Aminotransferase (ALT/SGPT) 26 U/L (14-59) Alkaline Phosphatase 58 U/L (46-116) Troponin I High Sensitivity 13 ng/L (4-50) 13 ng/L (4-50) DE-Adv-W-Type Natriuretic Peptide 47 pg/mL (0-124) Total Protein 7.5 g/dL (6.4-8.2) Albumin 3.7 g/dL (3.4-5.0) Albumin/Globulin Ratio 1.0 (1.0-1.7) Lipase 70 U/L (73-393) Thyroid Stimulating Hormone (TSH) 1.199 uIU/mL (0.358-3.74) Serum Test, Qualitative Negative (NEG) Test 09/10/21 05:10 White Blood Count 6.3 x10^3/uL (4.0-11.0) Red Blood Count 4.47 x10^6/uL (3.50-5.40) Hemoglobin 12.4 g/dL (12.0-15.5) Hematocrit 37.5 % (36.0-47.0) Mean Corpuscular Volume 84 fL (79-100) Mean Corpuscular Hemoglobin 28 pg (25-35) Mean Corpuscular Hemoglobin Concent 33 g/dL (31-37) Red Cell Distribution Width 14.0 % (11.5-14.5) Platelet Count 269 x10^3/uL (140-400) Neutrophils (%) (Auto) 56 % (31-73) Lymphocytes (%) (Auto) 30 % (24-48) Monocytes (%) (Auto) 11 % (0-9) Eosinophils (%) (Auto) 3 % (0-3) Basophils (%) (Auto) 0 % (0-3) Neutrophils # (Auto) 3.5 x10^3/uL (1.8-7.7) Lymphocytes # (Auto) 1.9 x10^3/uL (1.0-4.8) Monocytes # (Auto) 0.7 x10^3/uL (0.0-1.1) Eosinophils # (Auto) 0.2 x10^3/uL (0.0-0.7) Basophils # (Auto) 0.0 x10^3/uL (0.0-0.2) Sodium Level 140 mmol/L (136-145) Potassium Level 4.1 mmol/L (3.5-5.1) Chloride Level 106 mmol/L (98-107) Carbon Dioxide Level 24 mmol/L (21-32) Anion Gap 10 (6-14) Blood Urea Nitrogen 7 mg/dL (7-20) Creatinine 0.6 mg/dL (0.6-1.0) Estimated GFR (Cockcroft-Gault) 113.1 Glucose Level 112 mg/dL (70-99) Calcium Level 8.5 mg/dL (8.5-10.1) Laboratory Tests Test 09/09/21 21:55 09/09/21 22:00 09/09/21 22:10 09/10/21 00:12 Urine Collection Type Unknown Urine Color (Auto) Colorless Urine Turbidity Clear Urine pH (Auto) 6.0 (<5.0-8.0) Urine Specific [place] 1.006 (1.000-1.030) Urine Protein (Auto) Negative mg/dL (Negative) Urine Glucose (Auto)(UA) Negative mg/dL (Negative) Urine Ketones (Auto) Negative mg/dL (Negative) Urine Blood (Auto) Negative (Negative) Urine Nitrite Negative (Negative) Urine Bilirubin (Auto) Negative (Negative) Urine Urobilinogen (Auto) Normal mg/dL (Normal) Urine Leukocyte Esterase (Auto) Negative (Negative) Urine RBC 0 /HPF (0-2) Urine WBC 0 /HPF (0-4) Urine Squamous Epithelial Cells Few /LPF Urine Bacteria 0 /HPF (0-FEW) Urine Opiates Screen Neg (NEG) Urine Methadone Screen Neg (NEG) Urine Barbiturates Neg (NEG) Urine Phencyclidine Screen Neg (NEG) Urine Amphetamine/Methamphetamine Neg (NEG) Urine Benzodiazepines Screen Neg (NEG) Urine Cocaine Screen Neg (NEG) Urine Cannabinoids Screen Neg (NEG) Urine Ethyl Alcohol Neg (NEG) Bedside Urine HCG, Qualitative Hcg negative (Negative) White Blood Count 8.4 x10^3/uL (4.0-11.0) Red Blood Count 4.64 x10^6/uL (3.50-5.40) Hemoglobin 12.9 g/dL (12.0-15.5) Hematocrit 38.2 % (36.0-47.0) Mean Corpuscular Volume 82 fL (79-100) Mean Corpuscular Hemoglobin 28 pg (25-35) Mean Corpuscular Hemoglobin Concent 34 g/dL (31-37) Red Cell Distribution Width 13.7 % (11.5-14.5) Platelet Count 284 x10^3/uL (140-400) Neutrophils (%) (Auto) 67 % (31-73) Lymphocytes (%) (Auto) 21 % (24-48) Monocytes (%) (Auto) 8 % (0-9) Eosinophils (%) (Auto) 3 % (0-3) Basophils (%) (Auto) 1 % (0-3) Neutrophils # (Auto) 5.6 x10^3/uL (1.8-7.7) Lymphocytes # (Auto) 1.8 x10^3/uL (1.0-4.8) Monocytes # (Auto) 0.7 x10^3/uL (0.0-1.1) Eosinophils # (Auto) 0.2 x10^3/uL (0.0-0.7) Basophils # (Auto) 0.0 x10^3/uL (0.0-0.2) D-Dimer (Aaliyah) < 0.27 ug/mlFEU Sodium Level 141 mmol/L (136-145) Potassium Level 3.8 mmol/L (3.5-5.1) Chloride Level 103 mmol/L (98-107) Carbon Dioxide Level 29 mmol/L (21-32) Anion Gap 9 (6-14) Blood Urea Nitrogen 7 mg/dL (7-20) Creatinine 0.8 mg/dL (0.6-1.0) Estimated GFR (Cockcroft-Gault) 81.2 BUN/Creatinine Ratio 9 (6-20) Glucose Level 121 mg/dL (70-99) Calcium Level 8.9 mg/dL (8.5-10.1) Total Bilirubin 0.7 mg/dL (0.2-1.0) Aspartate Amino Transf (AST/SGOT) 15 U/L (15-37) Alanine Aminotransferase (ALT/SGPT) 26 U/L (14-59) Alkaline Phosphatase 58 U/L (46-116) Troponin I High Sensitivity 13 ng/L (4-50) 13 ng/L (4-50) NE-Odv-Z-Type Natriuretic Peptide 47 pg/mL (0-124) Total Protein 7.5 g/dL (6.4-8.2) Albumin 3.7 g/dL (3.4-5.0) Albumin/Globulin Ratio 1.0 (1.0-1.7) Lipase 70 U/L (73-393) Thyroid Stimulating Hormone (TSH) 1.199 uIU/mL (0.358-3.74) Serum Test, Qualitative Negative (NEG) Test 09/10/21 05:10 White Blood Count 6.3 x10^3/uL (4.0-11.0) Red Blood Count 4.47 x10^6/uL (3.50-5.40) Hemoglobin 12.4 g/dL (12.0-15.5) Hematocrit 37.5 % (36.0-47.0) Mean Corpuscular Volume 84 fL (79-100) Mean Corpuscular Hemoglobin 28 pg (25-35) Mean Corpuscular Hemoglobin Concent 33 g/dL (31-37) Red Cell Distribution Width 14.0 % (11.5-14.5) Platelet Count 269 x10^3/uL (140-400) Neutrophils (%) (Auto) 56 % (31-73) Lymphocytes (%) (Auto) 30 % (24-48) Monocytes (%) (Auto) 11 % (0-9) Eosinophils (%) (Auto) 3 % (0-3) Basophils (%) (Auto) 0 % (0-3) Neutrophils # (Auto) 3.5 x10^3/uL (1.8-7.7) Lymphocytes # (Auto) 1.9 x10^3/uL (1.0-4.8) Monocytes # (Auto) 0.7 x10^3/uL (0.0-1.1) Eosinophils # (Auto) 0.2 x10^3/uL (0.0-0.7) Basophils # (Auto) 0.0 x10^3/uL (0.0-0.2) Sodium Level 140 mmol/L (136-145) Potassium Level 4.1 mmol/L (3.5-5.1) Chloride Level 106 mmol/L (98-107) Carbon Dioxide Level 24 mmol/L (21-32) Anion Gap 10 (6-14) Blood Urea Nitrogen 7 mg/dL (7-20) Creatinine 0.6 mg/dL (0.6-1.0) Estimated GFR (Cockcroft-Gault) 113.1 Glucose Level 112 mg/dL (70-99) Calcium Level 8.5 mg/dL (8.5-10.1) VTE Prophylaxis Ordered VTE Prophylaxis Devices: Yes VTE Pharmacological Prophylaxi: Yes Assessment/Plan Assessment/Plan Chest pain -negative for acute ND. Most likely GERD/gastritis versus viral syndrome with abnormal EKG will be to maintain telemetry and consult cardiology Headache dizziness shortness of breath with exertion and body aches -sounds like a viral syndrome will test for influenza and COVID-19. Supportive care for now no hypoxia. Abnormal EKG -sinus arrhythmia versus atypical second-degree heart block. Will maintain telemetry consult cardiology Morbid obesity -counseled on lifestyle modification FEN - Cardiac diet PPX - heparin FULL CODE Dispo - inpatient Justifications for Admission Other Justification MAURICIO DIXON MD September 10, 2021 07:30
--- NOTE | 2021-09-10 08:41 | PDOC2 ---
UCHE [facility] [employer] 09/10/21 0841: CARDIAC CONSULT DATE OF CONSULT Date of Consult DATE: 09/10/21 TIME: 08:37 REASON FOR CONSULT Reason for Consult: Chest pain, abnormal EKG REFERRING PHYSICIAN Referring Physician: Salma SOURCE Source: Chart review, Patient HISTORY OF PRESENT ILLNESS HISTORY OF PRESENT ILLNESS This is a pleasant 36 yo female admitted for complains of chest pain. Reports that this is pressure like but no significant SOA. Also notable for QUIROGA throbbing bilaterally but no visual or auditory changes. She does however experience dizziness and at times associated with vertigo She did have some nausea but no vomiting or diarrhea. No tinnitus or intermittent deafness. No anosmia or ageusia.. No fever or chills. No falls or passing out. She does not take any Rx medications. None of her family members are sick and she had the [employer] shots but no booster. Negative for cardiopulmonary disease hx. PAST MEDICAL HISTORY Past Medical History No pertinent history PAST SURGICAL HISTORY Past Surgical History: FAMILY HISTORY Family History: Diabetes, Hypertension SOCIAL HISTORY Smoke: No ALCOHOL: none Drugs: None Lives: with Family CURRENT MEDICATIONS CURRENT MEDICATIONS Current Medications Medications (Trade) Dose Ordered Sig/Carlos Alberto Route PRN Reason Start Time Stop Time Status Last Admin Dose Admin Aspirin (Aspirin Chewable) 324 mg 1X ONCE PO 09/09/21 22:00 09/09/21 22:01 DC 09/09/21 22:41 Ondansetron HCl (Zofran) 4 mg 1X ONCE IVP 09/09/21 22:00 09/09/21 22:01 DC 09/09/21 22:41 Sodium Chloride 1,000 ml @ 1,000 mls/hr 1X ONCE IV 09/09/21 22:00 09/09/21 22:59 DC 09/09/21 22:40 Morphine Sulfate (Morphine Sulfate) 4 mg 1X PRN IV PAIN 09/09/21 22:00 09/10/21 02:14 Meclizine HCl (Antivert) 25 mg 1X ONCE PO 09/09/21 22:00 09/09/21 22:01 DC 09/09/21 22:40 Diazepam (Valium) 5 mg 1X ONCE PO 09/09/21 22:00 09/09/21 22:01 DC 09/09/21 22:42 Acetaminophen (Tylenol) 650 mg PRN Q6HRS PRN PO MILD PAIN / TEMP > 100.3'F 09/10/21 06:00 09/10/21 06:11 Sodium Chloride 1,000 ml @ 100 mls/hr Q10H IV 09/10/21 06:00 09/10/21 06:12 ALLERGIES ALLERGIES: Coded Allergies: No Known Drug Allergies (Unverified , 07/13/17) ROS Review of System 14 point ROS evaluated with pertinent positives noted per HPI PHYSICAL EXAM General: Alert, Oriented X3, Cooperative HEENT: Atraumatic, Mucous membr. moist/pink Lungs: Clear to auscultation, Normal air movement Heart: Regular rate (SR), Normal S1, Normal S2, No murmurs Abdomen: Soft, No tenderness Extremities: No cyanosis, No edema Skin: No breakdown, No significant lesion, Other (upper lip hemangioma) Neuro: Normal speech, Sensation intact Psych/Mental Status: Mental status NL, Mood NL MUSCULOSKELETAL: Full range of motion without pain VITALS/I&O VITALS/I&O: Vital Signs Date Time Temp Pulse Resp B/P (MAP) Pulse Ox O2 Delivery O2 Flow Rate FiO2 09/10/21 06:33 98.2 42 16 117/60 (79) 97 Room Air 98.2 I & O 09/09/21 09/09/21 09/10/21 15:00 23:00 07:00 Intake Total 100 ml Output Total 200 ml Balance -100 ml LABS Lab: Laboratory Tests Test 09/09/21 21:55 09/09/21 22:00 09/09/21 22:10 09/10/21 00:12 Urine Collection Type Unknown Urine Color (Auto) Colorless Urine Turbidity Clear Urine pH (Auto) 6.0 (<5.0-8.0) Urine Specific [place] 1.006 (1.000-1.030) Urine Protein (Auto) Negative mg/dL (Negative) Urine Glucose (Auto)(UA) Negative mg/dL (Negative) Urine Ketones (Auto) Negative mg/dL (Negative) Urine Blood (Auto) Negative (Negative) Urine Nitrite Negative (Negative) Urine Bilirubin (Auto) Negative (Negative) Urine Urobilinogen (Auto) Normal mg/dL (Normal) Urine Leukocyte Esterase (Auto) Negative (Negative) Urine RBC 0 /HPF (0-2) Urine WBC 0 /HPF (0-4) Urine Squamous Epithelial Cells Few /LPF Urine Bacteria 0 /HPF (0-FEW) Urine Opiates Screen Neg (NEG) Urine Methadone Screen Neg (NEG) Urine Barbiturates Neg (NEG) Urine Phencyclidine Screen Neg (NEG) Urine Amphetamine/Methamphetamine Neg (NEG) Urine Benzodiazepines Screen Neg (NEG) Urine Cocaine Screen Neg (NEG) Urine Cannabinoids Screen Neg (NEG) Urine Ethyl Alcohol Neg (NEG) POC Urine HCG, Qualitative Hcg negative (Negative) White Blood Count 8.4 x10^3/uL (4.0-11.0) Red Blood Count 4.64 x10^6/uL (3.50-5.40) Hemoglobin 12.9 g/dL (12.0-15.5) Hematocrit 38.2 % (36.0-47.0) Mean Corpuscular Volume 82 fL (79-100) Mean Corpuscular Hemoglobin 28 pg (25-35) Mean Corpuscular Hemoglobin Concent 34 g/dL (31-37) Red Cell Distribution Width 13.7 % (11.5-14.5) Platelet Count 284 x10^3/uL (140-400) Neutrophils (%) (Auto) 67 % (31-73) Lymphocytes (%) (Auto) 21 % (24-48) L Monocytes (%) (Auto) 8 % (0-9) Eosinophils (%) (Auto) 3 % (0-3) Basophils (%) (Auto) 1 % (0-3) Neutrophils # (Auto) 5.6 x10^3/uL (1.8-7.7) Lymphocytes # (Auto) 1.8 x10^3/uL (1.0-4.8) Monocytes # (Auto) 0.7 x10^3/uL (0.0-1.1) Eosinophils # (Auto) 0.2 x10^3/uL (0.0-0.7) Basophils # (Auto) 0.0 x10^3/uL (0.0-0.2) D-Dimer (Aaliyah) < 0.27 ug/mlFEU Sodium Level 141 mmol/L (136-145) Potassium Level 3.8 mmol/L (3.5-5.1) Chloride Level 103 mmol/L (98-107) Carbon Dioxide Level 29 mmol/L (21-32) Anion Gap 9 (6-14) Blood Urea Nitrogen 7 mg/dL (7-20) Creatinine 0.8 mg/dL (0.6-1.0) Estimated GFR (Cockcroft-Gault) 81.2 BUN/Creatinine Ratio 9 (6-20) Glucose Level 121 mg/dL (70-99) H Calcium Level 8.9 mg/dL (8.5-10.1) Total Bilirubin 0.7 mg/dL (0.2-1.0) Aspartate Amino Transferase (AST) 15 U/L (15-37) Alanine Aminotransferase (ALT) 26 U/L (14-59) Alkaline Phosphatase 58 U/L (46-116) Troponin I High Sensitivity 13 ng/L (4-50) 13 ng/L (4-50) GX-Ilr-M-Type Natriuretic Peptide 47 pg/mL (0-124) Total Protein 7.5 g/dL (6.4-8.2) Albumin 3.7 g/dL (3.4-5.0) Albumin/Globulin Ratio 1.0 (1.0-1.7) Lipase 70 U/L (73-393) L Thyroid Stimulating Hormone (TSH) 1.199 uIU/mL (0.358-3.74) Serum Test, Qualitative Negative (NEG) Test 09/10/21 05:10 White Blood Count 6.3 x10^3/uL (4.0-11.0) Red Blood Count 4.47 x10^6/uL (3.50-5.40) Hemoglobin 12.4 g/dL (12.0-15.5) Hematocrit 37.5 % (36.0-47.0) Mean Corpuscular Volume 84 fL (79-100) Mean Corpuscular Hemoglobin 28 pg (25-35) Mean Corpuscular Hemoglobin Concent 33 g/dL (31-37) Red Cell Distribution Width 14.0 % (11.5-14.5) Platelet Count 269 x10^3/uL (140-400) Neutrophils (%) (Auto) 56 % (31-73) Lymphocytes (%) (Auto) 30 % (24-48) Monocytes (%) (Auto) 11 % (0-9) H Eosinophils (%) (Auto) 3 % (0-3) Basophils (%) (Auto) 0 % (0-3) Neutrophils # (Auto) 3.5 x10^3/uL (1.8-7.7) Lymphocytes # (Auto) 1.9 x10^3/uL (1.0-4.8) Monocytes # (Auto) 0.7 x10^3/uL (0.0-1.1) Eosinophils # (Auto) 0.2 x10^3/uL (0.0-0.7) Basophils # (Auto) 0.0 x10^3/uL (0.0-0.2) Sodium Level 140 mmol/L (136-145) Potassium Level 4.1 mmol/L (3.5-5.1) Chloride Level 106 mmol/L (98-107) Carbon Dioxide Level 24 mmol/L (21-32) Anion Gap 10 (6-14) Blood Urea Nitrogen 7 mg/dL (7-20) Creatinine 0.6 mg/dL (0.6-1.0) Estimated GFR (Cockcroft-Gault) 113.1 Glucose Level 112 mg/dL (70-99) H Calcium Level 8.5 mg/dL (8.5-10.1) Procalcitonin < 0.10 ng/mL (0.00-0.10) Laboratory Tests 09/09/21 22:10 09/10/21 05:10 Laboratory Tests 09/09/21 22:10 09/10/21 05:10 ASSESSMENT/PLAN ASSESSMENT/PLAN 1. Chest pain: mixed features possibly GI 2. Arrhythmia: noted with second degree mobitz type 2 with intermittent 2:1 and 3:2 c/s. Vagally induced. No pauses 3. QUIROGA/vertigo: per PCP 4, Obesity 5. PUI: vaccinated Recommendations 1. TTE 2. Monitor rhythm, MCOT 3. Avoid AV kirsty blocking agents. KEVIN HUITRON MD 09/11/21 1005: CARDIAC CONSULT ASSESSMENT/PLAN ASSESSMENT/PLAN Patient seen and examined 09/10/2021. Agree with [employer]'s assessment and plan. Chest pain with atypical features and most probably GI etiology 2D echo showed normal LV systolic function without any wall motion abnormalities Telemetry showed sinus rhythm with Mobitz type I second-degree AV block/Wenckebach Agree with outpatient event monitor Thank you for your consultation UCHE LAMAR APRN September 10, 2021 08:41 KEVIN HUITRON MD September 11, 2021 10:05
[2021-09-10 09:26] LABS: INFLUENZA A PATIENT NEGATIVE (NEGATIVE); INFLUENZA B PATIENT NEGATIVE (NEGATIVE)
[2021-09-10 11:19] LABS: CHOLESTEROL/HDL RATIO 5.2
--- NOTE | 2021-09-10 15:44 | CARD ---
MR#: [id number] Date of Study: 09/10/2021 Ordering Physician: UCHE LAMAR, Referring Physician: UCHE LAMAR Tech: Dax Butler [facility] APPROVED REPORT EXAM: Two-dimensional and M-mode echocardiogram with Doppler and color Doppler. Other Information Quality : AverageHR: 42bpm Rhythm : Bradycardia INDICATION Chest Pain RISK FACTORS Hypertension Diabetes Abnormal EKG 2D DIMENSIONS Left Atrium(2D)3.1 (1.6-4.0cm)IVSd1.0 (0.7-1.1cm) Aortic Root(2D)3.0 (2.0-3.7cm)LVDd4.5 (3.9-5.9cm) LVOT Diameter2.0 (1.8-2.4cm)PWd1.0 (0.7-1.1cm) LVDs2.6 (2.5-4.0cm)FS (%) 41.6 % SV65.7 mlLVEF(%)72.6 (>50%) Aortic Valve AoV Peak Tavon.184.5cm/sAoV VTI34.1cm AO Peak GR.13.6mmHgLVOT Peak Tavon.131.1cm/s AO Mean GR.6mmHgAVA (VMAX)2.13cm2 Mitral Valve MV E Oelhoduq49.5cm/sMV DECEL ZRVH571cq MV A Zjzaasde723.7cm/sE/A Ratio0.7 Pulmonary Valve PV Peak Cegvvgid901.4cm/s Tricuspid Valve TR P. Xgcalvvi334qe/sTR Peak Gr.21mmHg Pulmonary Vein S1 Qcuccevu22.5cm/sD2 Hbnmeoqc36.4cm/s LEFT VENTRICLE The left ventricle is normal size. There is normal left ventricular wall thickness. The left ventricu lar systolic function is normal and the ejection fraction is within normal range. EF 55% There is nor mal LV segmental wall motion. Transmitral Doppler flow pattern is Grade I-abnormal relaxation pattern . No left ventricle thrombus noted on this study. There is no ventricular septal defect visualized. T here is no left ventricular aneurysm. There is no mass noted in the left ventricle. RIGHT VENTRICLE The right ventricle is normal size. There is normal right ventricular wall thickness. The right ventr icular systolic function is normal. ATRIA The left atrium size is normal. The right atrium size is normal. The interatrial septum is intact wit h no evidence for an atrial septal defect or patent foramen ovale as noted on 2-D or Doppler imaging. AORTIC VALVE The aortic valve is normal in structure and function. Doppler and Color Flow revealed no significant aortic regurgitation. There is no significant aortic valvular stenosis. There is no aortic valvular v egetation. MITRAL VALVE The mitral valve is normal in structure and function. There is no evidence of mitral valve prolapse. There is no mitral valve stenosis. Doppler and Color-flow revealed trace to mild mitral regurgitation . TRICUSPID VALVE The tricuspid valve is normal in structure and function. Doppler and Color Flow revealed trace tricus pid regurgitation. There is no tricuspid valve prolapse or vegetation. There is no tricuspid valve st enosis. PULMONIC VALVE Doppler and Color Flow revealed no pulmonic valvular regurgitation. There is no pulmonic valvular holden nosis. GREAT VESSELS The aortic root is normal in size. The ascending aorta is normal in size. The IVC is normal in size a nd collapses >50% with inspiration. PERICARDIAL EFFUSION There is no pleural effusion. There is no evidence of significant pericardial effusion. Critical Notification Critical Value: No <Conclusion> The left ventricular systolic function is normal and the ejection fraction is within normal range. EF 55% There is normal LV segmental wall motion. Signed by : Papito Preciado, Electronically Approved : 09/10/2021 15:43:46
--- NOTE | 2021-09-10 16:55 | NUR ---
SS following for discharge planning. SS reviewed pt chart and discussed with pt RN. Pt is from home with spouse and is currently on room air. Cardiology following. COVID19 negative. SS will continue to follow for discharge planning.
--- NOTE | 2021-09-10 19:45 | NUR ---
Assessment completed vss poc explained pt denied pain at this time c/o headache. Will resume care and continue to monitor pt.Call light in reach pt reminded to call for assistance prior to getting oob.
[2021-09-11] MEDS: IV NORMAL SALINE 1000ML BAG 1,000 ML IV SCH ×3 (02:57→12:00)
[2021-09-11 03:12] VITALS: BP 149/73
[2021-09-11 07:00] VITALS: BP 150/75
[2021-09-11 10:47] VITALS: BP 144/76
--- NOTE | 2021-09-11 11:22 | PDOC ---
UCHE LAMAR [employer] 09/11/21 1122: CARDIO Progress Notes Date and Time Date of Service 09/11/2021 Time of Evaluation 1110 Subjective Subjective: No Chest Pain, No shortness of breath, No Palpitations Vitals Vitals Vital Signs Date Time Temp Pulse Resp B/P (MAP) Pulse Ox O2 Delivery O2 Flow Rate FiO2 09/11/21 10:47 97.8 58 18 144/76 (98) 99 Room Air 97.8 Weight Weight [ ] Input and Output Intake and Output Intake and Output 09/11/21 07:00 Intake Total 2100 ml Balance 2100 ml Intake Oral 1100 ml IV Total 1000 ml # Voids 4 # Bowel Movements 1 Physical Exam HEENT: Neck Supple W Full Motion Chest: Symmetric LUNGS: Clear to Auscultation Heart: S1S2, RRR (SR) Abdomen: Soft N/T Extremities: No Calf Tenderness Neurology: alert, oriented, follow commands Assessment Assessment 1. Chest pain: mixed features possibly GI 2. Arrhythmia: noted with second degree mobitz type 1 with intermittent 2:1 and 3:2 c/s. Vagally induced. No pauses. EF and WM nml. Maintaining SR. No pauses 3. QUIROGA/vertigo: per PCP neg for covid-19 4, Obesity Recommendations 1. MCOT 2. Avoid AV kirsty blocking agents. 3. Follow up in office Justicifation of Admission Dx: Justifications for Admission: Justification of Admission Dx: Yes KEVIN HUITRON MD 09/11/21 1344: CARDIO Progress Notes Assessment Assessment Patient seen and examined. Agree with TURKEY CLEANER's assessment and plan. Chest pain with atypical features and most probably GI etiology 2D echo showed normal LV systolic function without any wall motion abnormalities Telemetry showed sinus rhythm with Mobitz type I second-degree AV block/Wenckebach Agree with outpatient event monitor UCHE LAMAR APRN September 11, 2021 11:22 KEVIN HUITRON MD September 11, 2021 13:44
--- NOTE | 2021-09-11 11:50 | NUR ---
SS following for discharge planning. SS reviewed pt chart and discussed with pt RN. Pt is from home with spouse and is currently on room air. COVID19 negative. Cardiology following. SS will continue to follow for discharge planning.
[2021-09-11] MEDS: ACETAMINOPHEN 325 MG TABLET. PO PRN (13:53)
--- NOTE | 2021-09-11 14:13 | PDOC3 ---
Discharge Summary Visit Information Date of Admission: September 10, 2021 Date of Discharge: September 11, 2021 Admitting Diagnosis: Chest pain, dizziness, headache Final Diagnosis Problems Medical Problems: (1) Abnormal EKG Status: Acute (2) Chest pain at rest Status: Acute Brief Hospital Course Allergies Allergies Coded Allergies Type Severity Reaction Last Updated Verified No Known Drug Allergies 07/13/17 No Vital Signs Vital Signs Date Time Temp Pulse Resp B/P (MAP) Pulse Ox O2 Delivery O2 Flow Rate FiO2 09/11/21 10:47 97.8 58 18 144/76 (98) 99 Room Air 97.8 Lab Results Laboratory Tests Test 09/09/21 21:55 09/09/21 22:00 09/09/21 22:10 09/10/21 00:12 Urine Collection Type Unknown Urine Color (Auto) Colorless Urine Turbidity Clear Urine pH (Auto) 6.0 (<5.0-8.0) Urine Specific Panther Burn 1.006 (1.000-1.030) Urine Protein (Auto) Negative mg/dL (Negative) Urine Glucose (Auto)(UA) Negative mg/dL (Negative) Urine Ketones (Auto) Negative mg/dL (Negative) Urine Blood (Auto) Negative (Negative) Urine Nitrite Negative (Negative) Urine Bilirubin (Auto) Negative (Negative) Urine Urobilinogen (Auto) Normal mg/dL (Normal) Urine Leukocyte Esterase (Auto) Negative (Negative) Urine RBC 0 /HPF (0-2) Urine WBC 0 /HPF (0-4) Urine Squamous Epithelial Cells Few /LPF Urine Bacteria 0 /HPF (0-FEW) Urine Opiates Screen Neg (NEG) Urine Methadone Screen Neg (NEG) Urine Barbiturates Neg (NEG) Urine Phencyclidine Screen Neg (NEG) Urine Amphetamine/Methamphetamine Neg (NEG) Urine Benzodiazepines Screen Neg (NEG) Urine Cocaine Screen Neg (NEG) Urine Cannabinoids Screen Neg (NEG) Urine Ethyl Alcohol Neg (NEG) Bedside Urine HCG, Qualitative Hcg negative (Negative) White Blood Count 8.4 x10^3/uL (4.0-11.0) Red Blood Count 4.64 x10^6/uL (3.50-5.40) Hemoglobin 12.9 g/dL (12.0-15.5) Hematocrit 38.2 % (36.0-47.0) Mean Corpuscular Volume 82 fL (79-100) Mean Corpuscular Hemoglobin 28 pg (25-35) Mean Corpuscular Hemoglobin Concent 34 g/dL (31-37) Red Cell Distribution Width 13.7 % (11.5-14.5) Platelet Count 284 x10^3/uL (140-400) Neutrophils (%) (Auto) 67 % (31-73) Lymphocytes (%) (Auto) 21 % (24-48) Monocytes (%) (Auto) 8 % (0-9) Eosinophils (%) (Auto) 3 % (0-3) Basophils (%) (Auto) 1 % (0-3) Neutrophils # (Auto) 5.6 x10^3/uL (1.8-7.7) Lymphocytes # (Auto) 1.8 x10^3/uL (1.0-4.8) Monocytes # (Auto) 0.7 x10^3/uL (0.0-1.1) Eosinophils # (Auto) 0.2 x10^3/uL (0.0-0.7) Basophils # (Auto) 0.0 x10^3/uL (0.0-0.2) D-Dimer (Aaliyah) < 0.27 ug/mlFEU Sodium Level 141 mmol/L (136-145) Potassium Level 3.8 mmol/L (3.5-5.1) Chloride Level 103 mmol/L (98-107) Carbon Dioxide Level 29 mmol/L (21-32) Anion Gap 9 (6-14) Blood Urea Nitrogen 7 mg/dL (7-20) Creatinine 0.8 mg/dL (0.6-1.0) Estimated GFR (Cockcroft-Gault) 81.2 BUN/Creatinine Ratio 9 (6-20) Glucose Level 121 mg/dL (70-99) Calcium Level 8.9 mg/dL (8.5-10.1) Total Bilirubin 0.7 mg/dL (0.2-1.0) Aspartate Amino Transf (AST/SGOT) 15 U/L (15-37) Alanine Aminotransferase (ALT/SGPT) 26 U/L (14-59) Alkaline Phosphatase 58 U/L (46-116) Troponin I High Sensitivity 13 ng/L (4-50) 13 ng/L (4-50) ZA-Hlf-P-Type Natriuretic Peptide 47 pg/mL (0-124) Total Protein 7.5 g/dL (6.4-8.2) Albumin 3.7 g/dL (3.4-5.0) Albumin/Globulin Ratio 1.0 (1.0-1.7) Lipase 70 U/L (73-393) Thyroid Stimulating Hormone (TSH) 1.199 uIU/mL (0.358-3.74) Serum Test, Qualitative Negative (NEG) Test 09/10/21 05:10 09/10/21 08:12 White Blood Count 6.3 x10^3/uL (4.0-11.0) Red Blood Count 4.47 x10^6/uL (3.50-5.40) Hemoglobin 12.4 g/dL (12.0-15.5) Hematocrit 37.5 % (36.0-47.0) Mean Corpuscular Volume 84 fL (79-100) Mean Corpuscular Hemoglobin 28 pg (25-35) Mean Corpuscular Hemoglobin Concent 33 g/dL (31-37) Red Cell Distribution Width 14.0 % (11.5-14.5) Platelet Count 269 x10^3/uL (140-400) Neutrophils (%) (Auto) 56 % (31-73) Lymphocytes (%) (Auto) 30 % (24-48) Monocytes (%) (Auto) 11 % (0-9) Eosinophils (%) (Auto) 3 % (0-3) Basophils (%) (Auto) 0 % (0-3) Neutrophils # (Auto) 3.5 x10^3/uL (1.8-7.7) Lymphocytes # (Auto) 1.9 x10^3/uL (1.0-4.8) Monocytes # (Auto) 0.7 x10^3/uL (0.0-1.1) Eosinophils # (Auto) 0.2 x10^3/uL (0.0-0.7) Basophils # (Auto) 0.0 x10^3/uL (0.0-0.2) Sodium Level 140 mmol/L (136-145) Potassium Level 4.1 mmol/L (3.5-5.1) Chloride Level 106 mmol/L (98-107) Carbon Dioxide Level 24 mmol/L (21-32) Anion Gap 10 (6-14) Blood Urea Nitrogen 7 mg/dL (7-20) Creatinine 0.6 mg/dL (0.6-1.0) Estimated GFR (Cockcroft-Gault) 113.1 Glucose Level 112 mg/dL (70-99) Calcium Level 8.5 mg/dL (8.5-10.1) Triglycerides Level 113 mg/dL (0-150) Cholesterol Level 150 mg/dL (0-200) LDL Cholesterol, Calculated 98 mg/dL (0-100) VLDL Cholesterol, Calculated 23 mg/dL (0-40) Non-HDL Cholesterol Calculated 121 mg/dL (0-129) HDL Cholesterol 29 mg/dL (40-60) Cholesterol/HDL Ratio 5.2 Procalcitonin < 0.10 ng/mL (0.00-0.10) Coronavirus (COVID-19)(PCR) Not detected (NOT DETECTD) Influenza Type A Antigen Negative (NEGATIVE) Influenza Type B Antigen Negative (NEGATIVE) SARS-CoV-2 Antigen (Rapid) Negative (NEGATIVE) Brief Hospital Course Ms Antoine is a 36 year old female presenting to the emergency department c/o chest pain. Started between 1400 and 1600 on 09/09/2021 she has associated headache d izziness shortness of breath with exertion and body aches. Pain described as pressure sensation in the center of her chest is associate with nausea and shortness of breath. She has no vomiting or diaphoresis with her symptoms and the symptoms have been constant since then. She says that the headache and room spinning sensation started at approximately 1500 PM. She says the room spinning sensation is more prominent when she moves her head or tries to walk and does not have room spinning when she is sitting still. She says the headache is diffuse and pounding. She feels weak when she stands up She lives at home with her and 15-year-old and 3-year-old child who are both, school no recent sick contacts that she knows of she is vaccinated against COVID-19. No prior history of cardiac events or blood clot disorders in Labs with WBC 8.4, Hb 12.9, platelets 284, D-dimer negative, NA 141, K3.8, BUN 17, CR 0.8, glucose 121, calcium 8.9, bilirubin 0.7, AST 15, ALT 26, alkaline phosphatase 58, albumin 3.7, lipase 77 negative, TSH 1.1, NT proBNP 47, initial high-sensitivity troponin is 13 and follow-up is 13 urine drug scre en negative urinalysis bland CT head noncontrast with no acute intracranial abnormality. Chest radiograph with left basilar changes infiltrate versus atelectasis. EKG sinus rate of approximately 77 bpm with some dropped beats with uncoupled P waves on multiple beats T WI in 5 V6 which is new from prior. QTc 386 She was noted with second-degree Mobitz type I on several occasions but appeared to be Mobitz type II with a 132 worse when she was bearing down to urinate or have a bowel movement. Her headache vertigo improved with Tylenol. Procalcitonin was negative rapid COVID-19 rapid influenza returned negative COVID-19 PCR returned negative. Ultimately she given supportive care for viral upper respiratory tract infection and was improving. Her dizziness improved no further vertiginous symptoms 2D echo showed normal LV systolic function without any wall motion abnormalities Telemetry showed sinus rhythm with Mobitz type I second-degree AV block/Wenckebach Physical examination on day of discharge HEENT: Head normocephalic, atraumatic. NECK: Supple LUNGS: Clear to auscultation. HEART: RRR, S1, S2 present, pulses intact ABDOMEN: Soft, positive bowel sounds. EXTREMITIES: No cyanosis or edema. NEUROLOGIC: Normal speech, normal tone PSYCHIATRIC: Normal affect, normal mood. SKIN: No ulceration. Consults: Cardiology Problem list: Chest pain -negative for acute ND. Most likely GERD/gastritis versus viral syndrome with abnormal EKG will be to maintain telemetry and consult cardiology Headache dizziness shortness of breath with exertion and body aches -sounds like a viral syndrome NEGATIVE test for influenza and COVID-19. Supportive care for now no hypoxia. Abnormal EKG -sinus arrhythmia versus atypical second-degree heart block. Will need outpatient MCOT Morbid obesity -counseled on lifestyle modification Greater than 30-minute spent on discharge home with self-care outpatient follow- up with cardiology on October 22, 2021 Discharge Information Condition at Discharge: Improved Follow Up: Weeks (2) Disposition/Orders: D/C to Home Scheduled Info (No Known Medications Prior To Admisstion) Each, 1 EACH MC for , (Reported) Entered as Reported by: Maxine Brennan on 09/10/21425 Last Action: New Order on 09/10/21425 by Maxine Brennan Justicifation of Admission Dx: Justifications for Admission: Justification of Admission Dx: Yes MAURICIO DIXON MD September 11, 2021 14:13
--- NOTE | 2021-09-11 14:30 | NUR ---
Discharge Note: JULIETTE ROWLAND [facility] Discharge instructions and discharge home medications reviewed with Patient and a copy given. All questions have been answered and understanding verbalized. The following instructions and handouts were given: second degree atrioventricular block, chest pain. Patient discharged to home with spouse via ambulatory
== END 2021-09-11 14:45 | disposition home or self-care (01) | DRG 392 ==
LOC: ER 21:28 → 6 SOUTH 23:31 → INTOOBSV 23:31 → OBSVTOIN 09-10 15:20
PROVIDERS: ADMIT Internal Medicine; ATTEND Internal Medicine
DX: K29.70 Gastritis, unspecified, without bleeding (principal); I44.1 Atrioventricular block, second degree; Z20.822 Contact with and (suspected) exposure to COVID-19; E66.01 Morbid (severe) obesity due to excess calories; J06.9 Acute upper respiratory infection, unspecified; K21.9 Gastro-esophageal reflux disease without esophagitis; Z71.3 Dietary counseling and surveillance; Z83.3 Family history of diabetes mellitus; Z82.49 Family history of ischemic heart disease and other diseases of the circulatory system; Z79.899 Other long term (current) drug therapy; Z68.38 Body mass index [BMI] 38.0-38.9, adult
CPT/HCPCS: 36415; 70450; 71045; 80048; 80053; 80061; 80307; 81001; 81025; 83690; 83880; 84145; 84443; 84484; 84703; 85025; 85379; 87428; 93005; 93306; 96374; G0378; G0379; J2270; J2405; J7030; U0003; 99285-25; C8929; J8597